=== PATIENT | male | born 1950 | race Caucasian/White ===

== ENCOUNTER → 2018-03-28 | Outpatient (CLI) | payer BC | END | disposition home or self-care (01) | LOC: CFH 12:51 | PROVIDERS: ATTEND Nurse Practitioner Family | DX: M48.061 Spinal stenosis, lumbar region without neurogenic claudication (principal); M48.07 Spinal stenosis, lumbosacral region; G62.9 Polyneuropathy, unspecified | CPT/HCPCS: 72148 ==

== ENCOUNTER 2020-01-06 15:07 | Emergency (ER) | payer BC ==
[~2020-01-06] VITALS: Ht 203.2 cm; Wt 114.4 kg
--- NOTE | 2020-01-06 15:50 | NUR ---
CAMPBELL CATHETER PLACED WITHOUT DIFFICULTY. BLOODY URINE DRAINING TO BAG. PT STATES NO DISCOMFORT. CONTINUE TO MONITOR. BP CUFF, PULSE OX IN PLACE.
--- NOTE | 2020-01-06 17:05 | NUR ---
400 ML OF BLOODY URINE OUT. PT STATES NO PAIN OR DISCOMFORT. OUPUT REPORTED TO ERP.
--- NOTE | 2020-01-06 18:03 | NUR ---
CAMPBELL DRAINING APPROX 50 CC/HR. CAMPBELL IRRIGATED WITH 60 CC NS, BLOODY URINE RUNNING MORE CLEAR, NO CLOTS OBSERVED. LAB IN TO DRAW. PT AND SPOUSE UPDATED ON POC.
[2020-01-06 18:26] LABS: ALBUMIN 3.4 g/dL (3.4-5.0); ANION GAP 3 mmol/L (5-15); CALCIUM 8.7 mg/dL (8.5-10.1); CHLORIDE 117 mmol/L (98-107)
[2020-01-06 18:31] LABS: BASOPHILS % (AUTO) 1 % (0-1); EOSINOPHILS % (AUTO) 1 % (1-7); LYMPHOCYTES % (AUTO) 34 % (22-44); MEAN CORPUSCULAR HEMOGLOBIN 27.9 pg (27.5-34.5); MEAN CORPUSCULAR HGB CONC 32.9 g/dL (33.2-36.2); MEAN PLATELET VOLUME 9.7 fL (7.4-10.4); MONOCYTES % (AUTO) 9 % (2-9); NEUTROPHILS % (AUTO) 55 % (42-75); PLATELET COUNT 180 x10^3/uL (130-400); RED BLOOD COUNT 5.06 x10^6/uL (4.38-5.82); RED CELL DISTRIBUTION WIDTH 14.2 % (9.4-14.8)
--- NOTE | 2020-01-06 18:32 | NUR ---
URINE COLLECTED/SENT TO LAB. PT RESTING COMFORTABLY, NO COMPLAINTS
[2020-01-06 18:33] LABS: MD NO
--- NOTE | 2020-01-06 18:55 | NUR ---
REPORT TO MELVIN, TRANSFER OF CARE AT THIS TIME.
[2020-01-06 18:56] LABS: MICROSCOPIC INDICATED
[2020-01-06 20:19] VITALS: BP 141/75
--- NOTE | 2020-01-06 20:21 | NUR ---
Changed standard drainage bag to leg bag. Pt has hx of urinary retention and verbalizes understanding r/t f/u with urologist, returned to ED with worsening sx, and abx course of tx. Ambulatory out of ED independently, steady gait
[2020-01-07] MEDS ORDERED: GLIP10TA13 PO (15:27)
[2020-01-07] MEDS ORDERED: LISI-167 PO (15:28)
[2020-01-07] MEDS ORDERED: LEVO50TA5 PO (15:29)
== END 2020-01-06 20:22 | disposition home or self-care (01) ==
LOC: ED 17:00
DX: R33.9 Retention of urine, unspecified (principal); R31.0 Gross hematuria
CPT/HCPCS: 36415; 51702; 80048; 81001; 82040; 85025; 87086; 99284

== ENCOUNTER 2020-01-07 14:07 | Inpatient (IN) | payer BC ==
[~2020-01-07] VITALS: Ht 195.6 cm; Wt 111.4 kg
--- NOTE | 2020-01-07 15:05 | NUR ---
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
[2020-01-07] MEDS ORDERED: GLIP10TA13 PO (15:27)
[2020-01-07] MEDS ORDERED: LISI-167 PO (15:28)
[2020-01-07] MEDS ORDERED: LEVO50TA5 PO (15:29)
[2020-01-07] MEDS ORDERED: LIDOCAINE 2%,20 ML JEL.PF.APP MM ONE (18:16)
--- NOTE | 2020-01-07 19:11 | NUR ---
FLUSHED CAMPBELL CATHETER WITH 6-7 LITERS OF STERILE WATER BUT WAS UNABLE TO STOP SMALL BLOOD CLOTS FROM COMING OUT AND OUTPUT NEVER GOT QUARTZ MINER BLASTING THAN STRAWBERRY RED IN COLOR. DR. HALEY NOTIFIED AND DR. ROES CONSULTED. 22 [place] 3-WAY CAMPBELL CATHETER INSERTED AND CONTINUOUS BLADDER IRRIGATION STARTED. TITRATED DRIP RATE TO LIGHT PINK OUTPUT. PT TOLERTATED WELL.
--- NOTE | 2020-01-07 19:11 | NUR ---
BS REPORT FROM MADELIN RN AND ROCKY RN. PT CARE TRANSFERRED AT THIS TIME. PT RESTING ON URVASHI DUNAWAY, AT BS. PT CAME IN DUE TO CAMPBELL NOT DRAINING FROM CLOTS. PT WAS SEEN HERE YESTERDAY AND CAMPBELL WAS PLACED. PT RECEIVING CBI AT THIS TIME. WCTM. PT TO BE ADMITTED, WAITING FOR ADMIT BED.
[2020-01-07 19:20] LABS: BASOPHILS % (AUTO) 0 % (0-1); EOSINOPHILS % (AUTO) 1 % (1-7); LYMPHOCYTES % (AUTO) 22 % (22-44); MEAN CORPUSCULAR HEMOGLOBIN 27.9 pg (27.5-34.5); MEAN CORPUSCULAR HGB CONC 32.8 g/dL (33.2-36.2); MONOCYTES % (AUTO) 9 % (2-9); NEUTROPHILS % (AUTO) 68 % (42-75); PLATELET COUNT 195 x10^3/uL (130-400); RED BLOOD COUNT 4.97 x10^6/uL (4.38-5.82); RED CELL DISTRIBUTION WIDTH 14.3 % (9.4-14.8)
--- NOTE | 2020-01-07 19:23 | NUR ---
PT BIB [facility] FROM [facility]. PT WENT IN FOR ABDOMINAL PAIN, DX WITH H.PYLORI AND PANCREATITIS THERE. PT STATES ABDOMINAL PAIN IS 8/10, LLQ/LUQ. PT RESTING ON GURNEY, CHANGED INTO GOWN, STILL PASSING BOWELS, LAST ONE YESTERDAY PM. 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
--- NOTE | 2020-01-07 19:23 | NUR ---
Note undone in EDM - 01/07/20 at 1925 by KEL PT ISSA CHOUDHURY FROM [facility]. PT WENT IN FOR ABDOMINAL PAIN, DX WITH H.PYLORI AND PANCREATITIS THERE. PT STATES ABDOMINAL PAIN IS 8/10, LLQ/LUQ. PT RESTING ON GURNEY, CHANGED INTO GOWN, STILL PASSING BOWELS, LAST ONE YESTERDAY PM. 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
--- NOTE | 2020-01-07 19:25 | NUR ---
NOTE ENTERED ON INCORRECT PT.
[2020-01-07 19:28] LABS: ALBUMIN 3.4 g/dL (3.4-5.0); ANION GAP 6 mmol/L (5-15); CALCIUM 8.7 mg/dL (8.5-10.1); CHLORIDE 118 mmol/L (98-107); CREATININE 1.86 mg/dL (0.7-1.3)
[2020-01-07] MEDS ORDERED: CEFTRIAXONE PMX 1GM/50ML 50 ML IV ONE (19:30)
[2020-01-07] MEDS ORDERED: SODIUM CHLORIDE FLUSH 10ML SYR IVF PRN (19:30)
[2020-01-07 19:34] LABS: MD NO
[2020-01-07] MEDS ORDERED: CEFTRIAXONE PMX 1GM/50ML 50 ML ONE ×2 (19:45→19:46)
--- NOTE | 2020-01-07 19:56 | NUR ---
pt almonte emptied, 800 ml out. pinkish color. bladder irrigation still in place, pt nad, resting on gurney, no change in condition, at bs. report called. pt care to be transferred upon arrival to the floor. wctm.
[2020-01-07] MEDS ORDERED: SODIUM CHLORIDE 0.9% 1,000 ML IV SCH (20:30)
[2020-01-07] MEDS ORDERED: ACETAMINOPHEN 325 MG TABLET PO PRN (20:30)
[2020-01-07] MEDS ORDERED: ONDANSETRON 2MG/ML, 2ML IVPush PRN (20:30)
[2020-01-07] MEDS: INSULIN LISPRO 100 UNITS/ML, PEN SQ-INSULIN SCH (21:00)
[2020-01-07 21:38] VITALS: BP 113/72
[2020-01-07] MEDS: LISINOPRIL 10 MG TABLET PO SCH (22:10)
[2020-01-08 00:27] VITALS: BP 108/70
[2020-01-08] MEDS: LEVOTHYROXINE 50 MCG TABLET PO SCH (05:28)
[2020-01-08 06:16] LABS: BASOPHILS % (AUTO) 1 % (0-1); EOSINOPHILS % (AUTO) 1 % (1-7); LYMPHOCYTES % (AUTO) 23 % (22-44); MEAN CORPUSCULAR HEMOGLOBIN 28.1 pg (27.5-34.5); MEAN PLATELET VOLUME 9.6 fL (7.4-10.4); MONOCYTES % (AUTO) 9 % (2-9); NEUTROPHILS % (AUTO) 67 % (42-75); PLATELET COUNT 163 x10^3/uL (130-400); RED BLOOD COUNT 4.51 x10^6/uL (4.38-5.82); RED CELL DISTRIBUTION WIDTH 14.1 % (9.4-14.8)
[2020-01-08 06:27] LABS: ANION GAP 5 mmol/L (5-15); CALCIUM 8.3 mg/dL (8.5-10.1); CHLORIDE 119 mmol/L (98-107); CREATININE 1.79 mg/dL (0.7-1.3)
[2020-01-08 06:51] LABS: MD NO
[2020-01-08] MEDS: INSULIN LISPRO 100 UNITS/ML, PEN SQ-INSULIN SCH ×4 (07:00→22:23)
[2020-01-08] MEDS: LISINOPRIL 10 MG TABLET PO SCH ×3 (07:48→22:04)
[2020-01-08 08:34] VITALS: BP 127/75
[2020-01-08 13:27] VITALS: BP 116/75
[2020-01-08] MEDS ORDERED: CEFTRIAXONE PMX 1GM/50ML 50 ML IV SCH (19:30)
[2020-01-08 20:31] VITALS: BP 103/63
[2020-01-09 00:10] VITALS: BP 116/66
[2020-01-09] MEDS: LEVOTHYROXINE 50 MCG TABLET PO SCH (05:07)
[2020-01-09] MEDS: INSULIN LISPRO 100 UNITS/ML, PEN SQ-INSULIN SCH ×2 (07:00→11:12)
[2020-01-09 07:29] VITALS: BP 133/77
[2020-01-09 08:00] VITALS: BP 109/76
[2020-01-09] MEDS: LISINOPRIL 10 MG TABLET PO SCH (08:53)
== END 2020-01-09 14:10 | disposition home or self-care (01) | DRG 699 ==
LOC: ED 16:22 → EDIP 20:27 → 3N 20:30 → DCLOUNGE 01-09 13:59
PROVIDERS: ADMIT Family Medicine; ATTEND Hospitalist
PROC: 0T9B70Z Drainage of Bladder with Drainage Device, Via Natural or Artificial Opening (ICD-10-PCS; principal; 2020-01-07)
DX: T83.091A Other mechanical complication of indwelling urethral catheter, initial encounter (principal); N13.8 Other obstructive and reflux uropathy; N30.01 Acute cystitis with hematuria; E03.9 Hypothyroidism, unspecified; E11.22 Type 2 diabetes mellitus with diabetic chronic kidney disease; E78.5 Hyperlipidemia, unspecified; I12.9 Hypertensive chronic kidney disease with stage 1 through stage 4 chronic kidney disease, or unspecified chronic kidney disease; N18.9 Chronic kidney disease, unspecified; N40.1 Benign prostatic hyperplasia with lower urinary tract symptoms; N31.9 Neuromuscular dysfunction of bladder, unspecified; Y73.8 Miscellaneous gastroenterology and urology devices associated with adverse incidents, not elsewhere classified; R29.2 Abnormal reflex; Z79.899 Other long term (current) drug therapy; Z79.891 Long term (current) use of opiate analgesic
CPT/HCPCS: 36415; 80048; 82040; 82962; 85025; G0378; J0696; J1815; J7030

== ENCOUNTER 2020-01-23 11:30 | Emergency (ER) | payer BC, MEDICARE ==
[~2020-01-23] VITALS: Ht 200.7 cm; Wt 111.0 kg
[~2020-01-23 11:30] MED LIST: GLIP10TA13 PO; LEVO50TA5 PO; LISI-167 PO
[2020-01-23 12:06] VITALS: BP 144/102
[2020-01-23 12:36] LABS: BASOPHILS % (AUTO) 1 % (0-1); EOSINOPHILS % (AUTO) 0 % (1-7); LYMPHOCYTES % (AUTO) 16 % (22-44); MEAN CORPUSCULAR HEMOGLOBIN 28.5 pg (27.5-34.5); MEAN CORPUSCULAR HGB CONC 33.5 g/dL (33.2-36.2); MEAN PLATELET VOLUME 8.8 fL (7.4-10.4); MONOCYTES % (AUTO) 7 % (2-9); NEUTROPHILS % (AUTO) 76 % (42-75); PLATELET COUNT 255 x10^3/uL (130-400); RED BLOOD COUNT 5.06 x10^6/uL (4.38-5.82); RED CELL DISTRIBUTION WIDTH 14.3 % (9.4-14.8)
[2020-01-23 12:37] LABS: MD NO
[2020-01-23 12:48] LABS: ALANINE AMINOTRANSFERASE 40 U/L (12-78); ALBUMIN 3.8 g/dL (3.4-5.0); ANION GAP 8 mmol/L (5-15); CHLORIDE 115 mmol/L (98-107); CREATININE 2.38 mg/dL (0.7-1.3)
[2020-01-23 12:50] LABS: ALKALINE PHOSPHATASE 149 U/L (45-117); BILIRUBIN,TOTAL 0.5 mg/dL (0.2-1.0); TOTAL PROTEIN 7.3 g/dL (6.4-8.2)
--- NOTE | 2020-01-23 13:49 | NUR ---
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
[2020-01-23 15:04] LABS: MICROSCOPIC INDICATED
== END 2020-01-23 16:25 ==
LOC: ED 14:00
DX: R31.0 Gross hematuria (principal); N28.9 Disorder of kidney and ureter, unspecified
CPT/HCPCS: 36415; 80053; 81001; 85025; 87077; 87086; 87186; 99283